=== PATIENT | female | born 1980 | race Asian ===

== ENCOUNTER 2018-03-25 09:04 | Inpatient (IN) | payer SELFPAY ==
[~2018-03-25] VITALS: Ht 163 cm; Wt 63.0 kg
[2018-03-25] MEDS ORDERED: LR 1,000 ML IV ONE (10:11)
[2018-03-25] MEDS ORDERED: CEFAZOLIN 2 GM IVPB PREMIX 50 ML IV ONE ×2 (10:15→14:00)
[2018-03-25 10:23] VITALS: BP_SYST 120
[2018-03-25 10:40] LABS: BASOPHILS # (AUTO) 0.1 K/uL (0.0-0.2); BASOPHILS % (AUTO) 0.7 % (0.0-2.0); EOSINOPHILS # (AUTO) 0.2 K/uL (0.0-0.4); EOSINOPHILS % (AUTO) 2.6 % (0.0-4.0); HEMATOCRIT 34.5 % (36-48); HEMOGLOBIN 12.1 g/dL (12.0-16.0); LYMPHOCYTES # (AUTO) 1.3 K/uL (1.0-5.5); LYMPHOCYTES % (AUTO) 17.7 % (20.5-51.5); MEAN CORPUSCULAR HEMOGLOBIN 33 pg (27-31); MEAN CORPUSCULAR HGB CONC 35 % (32-36); MEAN CORPUSCULAR VOLUME 94 fL (79.0-98.0); MONOCYTES # (AUTO) 0.3 K/uL (0.0-1.0); MONOCYTES % (AUTO) 3.5 % (1.7-9.3); NEUTROPHILS # (AUTO) 5.6 K/uL (1.8-7.7); NEUTROPHILS % (AUTO) 75.5 % (40.0-70.0); PLATELET COUNT (AUTO) 161 K/uL (130-430); RED BLOOD CELL COUNT(AUTO) 3.68 MIL/uL (4.2-6.2); RED CELL DISTRIBUTION WIDTH 12.2 % (9.0-15.0); WHITE BLOOD COUNT (AUTO) 7.5 K/uL (4.8-10.8)
[2018-03-25] MEDS ORDERED: NALOXONE HCL 0.4 MG/ML AMP (NARCAN) IVP PRN ×2 (13:30)
[2018-03-25] MEDS ORDERED: ONDANSETRON HCL 4 MG/2 ML VIAL IVP PRN ×2 (13:30)
[2018-03-25] MEDS ORDERED: KETOROLAC TROMETHAMINE 30 MG VIAL IVP PRN (13:30)
[2018-03-25] MEDS ORDERED: KETOROLAC TROMETHAMINE 60 MG/2 ML VIAL IM PRN (13:30)
[2018-03-25] MEDS ORDERED: fentaNYL CITRATE/PF 100 MCG/2 ML AMP IVP PRN ×2 (13:30)
[2018-03-25] MEDS ORDERED: MORPHINE SULFATE 10MG/10ML PF AMP SP SCH (13:30)
[2018-03-25] MEDS ORDERED: NALBUPHINE HCL 10 MG/ML AMP IVP PRN (13:30)
[2018-03-25] MEDS ORDERED: DIPHENHYDRAMINE INJ 50 MG/ML VIAL IVP PRN (13:30)
[2018-03-25 13:50] VITALS: BP_SYST 121
[2018-03-25] MEDS ORDERED: OXYTOCIN/0.9 % SODIUM CHLORIDE 1,000 ML IV ONE (13:56)
[2018-03-25] MEDS ORDERED: BUPIVACAINE /DEX PF 0.75% SPINAL 2 ML AMP INJ ONE (14:00)
[2018-03-25] MEDS ORDERED: MEASLES,MUMPS&RUBELLA VACC/PF 12500 UNIT/0.5 ML VIAL SUBQ PRN (14:00)
[2018-03-25] MEDS ORDERED: MORPHINE SULFATE 10MG/10ML PF AMP ONE (14:00)
[2018-03-25] MEDS ORDERED: LR 1,000 ML IV.SOLN IV ONE (14:00)
[2018-03-25] MEDS ORDERED: TRIAMCINOLONE ACETONIDE 40 MG/ML ONE (14:00)
[2018-03-25] MEDS ORDERED: WATER FOR IRRIGATION,STERILE 1,000 ML IRRIG.SOLN IR ONE (14:00)
[2018-03-25] MEDS ORDERED: LIDOCAINE PF 1%, 20 MG/2 ML AMP ONE (14:00)
[2018-03-25] MEDS ORDERED: LANOLIN 7 GM OINT. TP PRN (14:00)
[2018-03-25] MEDS ORDERED: OXYCODONE/ACETAMINOPHEN 5-325 TABLET PO PRN (16:30)
[2018-03-25] MEDS ORDERED: HYDROcodone/ACETAMIN 5-325 MG TAB (NORCO/ VICODIN) PO PRN (16:30)
[2018-03-25] MEDS: CEFAZOLIN 1 GM IVPB PREMIX 50 ML IV SCH (17:47)
[2018-03-25] MEDS ORDERED: TEMAZEPAM 15 MG CAPSULE PO PRN (21:00)
[2018-03-26] MEDS: CEFAZOLIN 1 GM IVPB PREMIX 50 ML IV SCH ×2 (00:04→05:25)
[2018-03-26] MEDS: IBUPROFEN 600 MG TABLET PO SCH ×2 (05:24→17:39)
[2018-03-26 06:12] LABS: BASOPHILS % (AUTO) 0.1 % (0.0-2.0); EOSINOPHILS # (AUTO) 0.1 K/uL (0.0-0.4); EOSINOPHILS % (AUTO) 0.8 % (0.0-4.0); HEMATOCRIT 31.5 % (36-48); HEMOGLOBIN 10.8 g/dL (12.0-16.0); LYMPHOCYTES # (AUTO) 1.2 K/uL (1.0-5.5); LYMPHOCYTES % (AUTO) 11.6 % (20.5-51.5); MEAN CORPUSCULAR HEMOGLOBIN 32 pg (27-31); MEAN CORPUSCULAR HGB CONC 34 % (32-36); MEAN CORPUSCULAR VOLUME 95 fL (79.0-98.0); MONOCYTES # (AUTO) 0.4 K/uL (0.0-1.0); MONOCYTES % (AUTO) 3.4 % (1.7-9.3); NEUTROPHILS # (AUTO) 8.9 K/uL (1.8-7.7); NEUTROPHILS % (AUTO) 84.1 % (40.0-70.0); PLATELET COUNT (AUTO) 136 K/uL (130-430); RED BLOOD CELL COUNT(AUTO) 3.33 MIL/uL (4.2-6.2); RED CELL DISTRIBUTION WIDTH 12.2 % (9.0-15.0)
[2018-03-26 06:49] LABS: WHITE BLOOD COUNT (AUTO) 10.6 K/uL (4.8-10.8)
[2018-03-26] MEDS: SIMETHICONE 80 MG TAB.CHEW PO PRN ×2 (09:19→15:07)
[2018-03-26] MEDS: DOCUSATE SODIUM 100 MG CAPSULE PO PRN (09:19)
[2018-03-26] MEDS: OXYCODONE/ACETAMINOPHEN 5-325 TABLET PO PRN ×2 (09:19→15:07)
[2018-03-27] MEDS: SIMETHICONE 80 MG TAB.CHEW PO PRN ×3 (00:10→22:06)
[2018-03-27] MEDS: IBUPROFEN 600 MG TABLET PO SCH ×4 (05:58→18:04)
[2018-03-27] MEDS ORDERED: NITROFURANTOIN MONOHYD/M-CRYST 100 MG CAPSULE PO SCH (09:00)
[2018-03-27] MEDS: DOCUSATE SODIUM 100 MG CAPSULE PO PRN ×2 (13:19→22:05)
[2018-03-27] MEDS: ANUSOL 1 EA SUPP.RECT (PREPARATION H) RC PRN (15:04)
[2018-03-27] MEDS ORDERED: MILK OF MAGNESIA 30 ML UDC PO PRN (18:15)
[2018-03-27] MEDS: MILK OF MAGNESIA 30 ML UDC PO PRN (18:22)
[2018-03-28] MEDS: IBUPROFEN 600 MG TABLET PO SCH ×2 (05:35)
[2018-03-28] MEDS: MILK OF MAGNESIA 30 ML UDC PO PRN (08:26)
[2018-03-28] MEDS: ANUSOL 1 EA SUPP.RECT (PREPARATION H) RC PRN (08:26)
[2018-03-28] MEDS: DOCUSATE SODIUM 100 MG CAPSULE PO PRN (08:27)
== END 2018-03-28 10:00 | disposition home or self-care (01) | DRG 766 ==
LOC: OBSVTOIN 09:04 → SPU 09:04
PROVIDERS: ADMIT Obstetrics & Gynecology; ATTEND Obstetrics & Gynecology
PROC: 10D00Z1 Extraction of Products of Conception, Low, Open Approach (ICD-10-PCS; principal; 2018-03-25 12:30)
DX: O99.89 Other specified diseases and conditions complicating pregnancy, childbirth and the puerperium (principal); R39.13 Splitting of urinary stream; Z3A.39 39 weeks gestation of pregnancy; Z37.0 Single live birth
CPT/HCPCS: 36415; 81002-TC; 85025; 86886; 86900; 86901; 94760; J0690; J1885; J2001; J2274; J3301; J3490; J7120